=== PATIENT | male | born 1975 | race Caucasian/White ===

== ENCOUNTER 2017-10-28 09:16 | Inpatient (IN) | payer MEDICAID, OTHER ==
[~2017-10-28] VITALS: Ht 167.6 cm; Wt 60.7 kg
[~2017-10-28 09:16] MED LIST: DOCU100C40 PO; IBUP-1986 PO; LACT1CAP26 PO; NICO-687 TD; TAMS0.4C32 PO; TERA2CAP4 PO
[2017-10-28] MEDS ORDERED: penicillin G potassium inj 2,000,000 UNIT in normal saline 100ml IV soln 100 ML IV ONE (09:30)
[2017-10-28] MEDS ORDERED: normal saline 1000ML IV soln IV ONE (09:30)
[2017-10-28 10:03] LABS: BASOPHILS % (AUTO) 0.4 % (0-1); EOSINOPHILS # (AUTO) 0.1 X10'3 (0-0.9); EOSINOPHILS % (AUTO) 1.7 % (0-6); HEMATOCRIT 37.7 % (42.0-52.0); HEMOGLOBIN 12.7 g/dl (14.0-17.9); LYMPHOCYTES # (AUTO) 1.3 X10'3 (1.1-4.8); LYMPHOCYTES % (AUTO) 14.4 % (21-51); MEAN CORPUSCULAR HEMOGLOBIN 30.2 PG (27.0-31.0); MEAN CORPUSCULAR HGB CONC 33.7 % (33.0-36.5); MEAN CORPUSCULAR VOLUME 89.6 FL (78-98); MEAN PLATELET VOLUME 7.2 FL (7.4-10.4); MONOCYTES # (AUTO) 0.4 X10'3 (0-0.9); MONOCYTES % (AUTO) 5.1 % (2-12); NEUTROPHILS # (AUTO) 6.9 X10'3 (1.8-7.7); NEUTROPHILS % (AUTO) 78.4 % (42-75); PLATELET COUNT 523 X10'3 (140-440); RED BLOOD COUNT 4.21 X10'6 (4.70-6.10); RED CELL DISTRIBUTION WIDTH 13.8 % (11.5-14.5); WHITE BLOOD COUNT 8.8 X10'3 (4.5-11.0)
[2017-10-28 10:13] LABS: PARTIAL THROMBOPLASTIN TIME 27 SECONDS (22-32); PROTHROMBIN TIME 10.1 SECONDS (9.0-12.0)
[2017-10-28 10:18] LABS: ALANINE AMINOTRANSFERASE 107 U/L (12-78); ALBUMIN 2.6 G/DL (3.4-5.0); ALBUMIN/GLOBULIN RATIO 0.4 (1.1-1.5); ALKALINE PHOSPHATASE 101 IU/L (46-116); ANION GAP 4 (8-16); ASPARTATE AMINO TRANSFERASE 69 U/L (10-37); BILIRUBIN,TOTAL 0.3 MG/DL (0.1-1.0); BLOOD UREA NITROGEN 6 MG/DL (7-18); BUN/CREATININE RATIO 7.8 (5.4-32.0); CALCIUM 8.6 MG/DL (8.5-10.1); CHLORIDE 105 MMOL/L (99-107); CREATININE 0.77 MG/DL (0.60-1.10); GLUCOSE 112 MG/DL (70-104); MAGNESIUM 1.8 MG/DL (1.5-2.4); POTASSIUM 3.6 MMOL/L (3.5-5.1); SODIUM 139 MMOL/L (135-145); TOTAL PROTEIN 8.4 G/DL (6.4-8.2); eGFR > 90 ML/MIN
[2017-10-28 10:25] LABS: CLARITY,URINE CLEAR (Clear); COLOR,URINE YELLOW (Yellow); GLUCOSE, URINE NEGATIVE (Neg); KETONES,URINE NEGATIVE (Neg); LEUKOCYTE ESTERASE ,URINE NEGATIVE (Neg); NITRITES, URINE NEGATIVE (Neg); OCCULT BLOOD,URINE TRACE-INTACT (Neg); PROTEIN,URINE NEGATIVE (Neg); UROBILINOGEN,URINE 0.2 E.U/dL (0.2-1.0)
[2017-10-28 10:28] LABS: UA COLLECTION TYPE CLN CATCH MIDSTREAM
[2017-10-28 10:43] LABS: BACTERIA,URINE FEW /HPF (Neg); MUCUS STRANDS FEW /LPF (Neg); SQUAMOUS EPITHELIAL CELL,UR FEW /LPF (FEW); WBC,URINE 0-4 /HPF (0-4)
[2017-10-28] MEDS ORDERED: acetaminophen 325mg tablet PO PRN ×2 (11:35)
[2017-10-28] MEDS ORDERED: magnesium hydroxide 30ml (MOM) UD suspension PO PRN (11:35)
[2017-10-28] MEDS ORDERED: mag hydrox/Alum hydrox/simeth 30ml oral suspension PO PRN (11:35)
[2017-10-28 12:26] LABS: TROPONIN I < 0.04 NG/ML (0.0-0.05)
[2017-10-28] MEDS ORDERED: ibuprofen tablet 400 MG TABLET PO PRN (12:30)
[2017-10-28] MEDS: HYDROcodone/acetaminophen 5mg/325mg tablet PO PRN ×2 (12:41→21:56)
[2017-10-28 14:00] VITALS: BP 131/81
[2017-10-28] MEDS: nicotine 14mg patch - 24hr TD SCH (19:35)
[2017-10-28 20:00] VITALS: BP_SYST 123; BP_SYST 128; BP_SYST 138; BP_DIAS 78; BP_DIAS 79; BP_DIAS 82
[2017-10-28] MEDS ORDERED: temazepam 15mg capsule PO PRN (21:00)
[2017-10-28] MEDS: penicillin G potassium inj 2,000,000 UNIT in normal saline 100ml IV soln 100 ML IV SCH (21:52)
[2017-10-29] VITALS: BP 127/73
[2017-10-29] MEDS: penicillin G potassium inj 2,000,000 UNIT in normal saline 100ml IV soln 100 ML IV SCH ×4 (02:40→19:54)
[2017-10-29] MEDS: HYDROcodone/acetaminophen 10/325mg tab PO PRN ×4 (04:00→17:18)
[2017-10-29 05:08] LABS: BASOPHILS # (AUTO) 0.1 X10'3 (0-0.2); BASOPHILS % (AUTO) 0.9 % (0-1); EOSINOPHILS # (AUTO) 0.2 X10'3 (0-0.9); EOSINOPHILS % (AUTO) 1.8 % (0-6); HEMATOCRIT 38.1 % (42.0-52.0); HEMOGLOBIN 12.7 g/dl (14.0-17.9); LYMPHOCYTES # (AUTO) 2.1 X10'3 (1.1-4.8); LYMPHOCYTES % (AUTO) 23.5 % (21-51); MEAN CORPUSCULAR HGB CONC 33.4 % (33.0-36.5); MEAN CORPUSCULAR VOLUME 89.8 FL (78-98); MEAN PLATELET VOLUME 7.5 FL (7.4-10.4); MONOCYTES # (AUTO) 0.5 X10'3 (0-0.9); MONOCYTES % (AUTO) 5.8 % (2-12); NEUTROPHILS # (AUTO) 6.2 X10'3 (1.8-7.7); PLATELET COUNT 505 X10'3 (140-440); RED BLOOD COUNT 4.24 X10'6 (4.70-6.10); RED CELL DISTRIBUTION WIDTH 13.8 % (11.5-14.5); WHITE BLOOD COUNT 9.1 X10'3 (4.5-11.0)
[2017-10-29] MEDS: LORazepam 0.5 MG tablet PO PRN (05:24)
[2017-10-29 05:46] LABS: ALBUMIN 2.5 G/DL (3.4-5.0); ANION GAP 8 (8-16); BLOOD UREA NITROGEN 13 MG/DL (7-18); BUN/CREATININE RATIO 16.3 (5.4-32.0); CALCIUM 8.9 MG/DL (8.5-10.1); CHLORIDE 105 MMOL/L (99-107); GLUCOSE 92 MG/DL (70-104); MAGNESIUM 1.8 MG/DL (1.5-2.4); POTASSIUM 4.1 MMOL/L (3.5-5.1); SODIUM 141 MMOL/L (135-145); TOTAL CARBON DIOXIDE 27.7 MMOL/L (24-32); eGFR > 90 ML/MIN
[2017-10-29 07:35] VITALS: BP 118/74
[2017-10-29 08:00] VITALS: BP_SYST 118; BP_SYST 119; BP_SYST 133; BP_DIAS 74; BP_DIAS 80; BP_DIAS 83
[2017-10-29] MEDS: tamsulosin 0.4mg capsule PO SCH (08:19)
[2017-10-29] MEDS: nicotine 14mg patch - 24hr TD SCH (08:19)
[2017-10-29 11:00] VITALS: BP 135/80
[2017-10-29] MEDS: ondansetron/PF 4mg/2ml inj IV PRN (13:21)
[2017-10-29] MEDS: lactobacillus rhamnosus 10,000 MMU CELLS/CAPSULE PO SCH (17:19)
[2017-10-29 22:00] VITALS: BP 115/69
[2017-10-30] MEDS: HYDROcodone/acetaminophen 10/325mg tab PO PRN ×2 (01:22→05:47)
[2017-10-30] MEDS: penicillin G potassium inj 2,000,000 UNIT in normal saline 100ml IV soln 100 ML IV SCH ×3 (01:23→14:42)
[2017-10-30 05:50] LABS: BASOPHILS % (AUTO) 0.6 % (0-1); EOSINOPHILS # (AUTO) 0.1 X10'3 (0-0.9); EOSINOPHILS % (AUTO) 1.4 % (0-6); HEMATOCRIT 40.5 % (42.0-52.0); HEMOGLOBIN 13.5 g/dl (14.0-17.9); LYMPHOCYTES % (AUTO) 24.7 % (21-51); MEAN CORPUSCULAR HEMOGLOBIN 29.9 PG (27.0-31.0); MEAN CORPUSCULAR HGB CONC 33.2 % (33.0-36.5); MEAN PLATELET VOLUME 7.2 FL (7.4-10.4); MONOCYTES # (AUTO) 0.6 X10'3 (0-0.9); MONOCYTES % (AUTO) 7.1 % (2-12); NEUTROPHILS # (AUTO) 5.3 X10'3 (1.8-7.7); NEUTROPHILS % (AUTO) 66.2 % (42-75); PLATELET COUNT 560 X10'3 (140-440); WHITE BLOOD COUNT 8.1 X10'3 (4.5-11.0)
[2017-10-30 05:52] LABS: PROTHROMBIN TIME 10.1 SECONDS (9.0-12.0)
[2017-10-30 05:56] LABS: ALBUMIN 2.7 G/DL (3.4-5.0); ANION GAP 7 (8-16); BLOOD UREA NITROGEN 10 MG/DL (7-18); BUN/CREATININE RATIO 11.4 (5.4-32.0); CALCIUM 9.4 MG/DL (8.5-10.1); CHLORIDE 103 MMOL/L (99-107); CREATININE 0.88 MG/DL (0.60-1.10); GLUCOSE 104 MG/DL (70-104); POTASSIUM 3.8 MMOL/L (3.5-5.1); SODIUM 140 MMOL/L (135-145); TOTAL CARBON DIOXIDE 29.8 MMOL/L (24-32); eGFR > 90 ML/MIN
[2017-10-30 06:00] VITALS: BP 114/63
[2017-10-30] MEDS: ondansetron/PF 4mg/2ml inj IV PRN (06:31)
[2017-10-30] MEDS: lactobacillus rhamnosus 10,000 MMU CELLS/CAPSULE PO SCH (07:56)
[2017-10-30] MEDS: tamsulosin 0.4mg capsule PO SCH (07:56)
[2017-10-30] MEDS: nicotine 14mg patch - 24hr TD SCH (07:57)
[2017-10-30 08:00] VITALS: BP_SYST 108; BP_SYST 115; BP_SYST 98; BP_DIAS 71; BP_DIAS 74; BP_DIAS 78
[2017-10-30] MEDS ORDERED: LORazepam 2 mg/ml vial IV ONE (08:00)
[2017-10-30 10:00] VITALS: BP 110/75
[2017-10-30] MEDS: LORazepam 0.5 MG tablet PO PRN (11:37)
[2017-10-30] MEDS ORDERED: AMO250L PO (16:31)
== END 2017-10-30 17:12 | disposition home or self-care (01) | DRG 57 ==
LOC: ER 09:17 → ED HOLD 11:31 → SUR 3N 14:14 → ORTHO 4S 10-29 17:27
PROVIDERS: ADMIT Emergency Medicine; ATTEND Emergency Medicine
DX: S02.119A Unspecified fracture of occiput, initial encounter for closed fracture (principal); F07.81 Postconcussional syndrome; S06.1X9A Traumatic cerebral edema with loss of consciousness of unspecified duration, initial encounter; S06.9X0A Unspecified intracranial injury without loss of consciousness, initial encounter; R26.89 Other abnormalities of gait and mobility; H91.8X1 Other specified hearing loss, right ear; F17.210 Nicotine dependence, cigarettes, uncomplicated; F15.90 Other stimulant use, unspecified, uncomplicated; Z79.899 Other long term (current) drug therapy; Z88.8 Allergy status to other drugs, medicaments and biological substances; Z86.14 Personal history of Methicillin resistant Staphylococcus aureus infection; Z81.8 Family history of other mental and behavioral disorders; Y08.89XA Assault by other specified means, initial encounter; Y93.89 Activity, other specified; Y92.89 Other specified places as the place of occurrence of the external cause; Y99.8 Other external cause status; Z91.81 History of falling
CPT/HCPCS: 36415; 70450; 70486; 70544; 70551; 71010; 80048; 80053; 81001; 83605; 83735; 84145; 84484; 85025; 85610; 85730; 87040; 87070; 93005; 96365; 99285; J2405; J2540; J7030

== ENCOUNTER 2020-09-17 22:14 | Emergency (ER) | payer MEDICAID, OTHER ==
[~2020-09-17] VITALS: Ht 167.6 cm; Wt 84.1 kg
[2020-09-17 22:21] VITALS: BP 111/67
[2020-09-17] MEDS ORDERED: ketorolac tromethamine 15mg/ml inj. IM ONE (22:40)
[2020-09-17] MEDS ORDERED: IBUP-1984 PO (22:48)
== END 2020-09-17 23:06 | disposition home or self-care (01) ==
LOC: ER 22:15
DX: M79.644 Pain in right finger(s) (principal); F17.200 Nicotine dependence, unspecified, uncomplicated; F15.90 Other stimulant use, unspecified, uncomplicated; Z86.14 Personal history of Methicillin resistant Staphylococcus aureus infection; Z72.89 Other problems related to lifestyle; Z88.8 Allergy status to other drugs, medicaments and biological substances; Z79.899 Other long term (current) drug therapy
CPT/HCPCS: 73140; 96372; 99283; J1885; 29130

== ENCOUNTER 2022-02-11 14:59 | Emergency (ER) | payer MEDICAID, OTHER ==
[~2022-02-11] VITALS: Ht 167.6 cm; Wt 88.2 kg
[2022-02-11 15:18] VITALS: BP 145/87
--- NOTE | 2022-02-11 16:50 | NUR ---
PT TO CT
[2022-02-11] MEDS ORDERED: LIDOcaine 1% W/epiNEPHrine 1:200,000 10ml vial IJ ONE (17:45)
[2022-02-11] MEDS ORDERED: LIDOCAINE 2% w/EPI 1:100:000 30mL injection MDV**cath lab 1 only SQ ONE (17:45)
--- NOTE | 2022-02-11 18:44 | NUR ---
PT REFUSING PROCEDURE. PT REQUESTING TO LEAVE. TRIPLE ANTIBOTIC OINTMENT AND BANDAID APPLIED. PT DID NOT WAIT FOR DISCHARGE INSTRUCTIONS. DR. FRAGOSO MADE AWARE THAT PT WAS NOT GOING TO WAIT. PT ENCOURAGED TO RETURN TO THE ER IN 3 DAYS FOR FURTHER EVALUATION AND TREATMENT.
== END 2022-02-11 18:49 | disposition home or self-care (01) ==
LOC: ER 15:01
DX: S01.01XA Laceration without foreign body of scalp, initial encounter (principal); F17.200 Nicotine dependence, unspecified, uncomplicated; F15.90 Other stimulant use, unspecified, uncomplicated; Z72.89 Other problems related to lifestyle; Z86.14 Personal history of Methicillin resistant Staphylococcus aureus infection; Z98.890 Other specified postprocedural states; Z88.8 Allergy status to other drugs, medicaments and biological substances; Y08.89XA Assault by other specified means, initial encounter; Y93.89 Activity, other specified; Y92.89 Other specified places as the place of occurrence of the external cause; Y99.8 Other external cause status
CPT/HCPCS: 70450; 99284

== ENCOUNTER 2023-07-08 17:44 | Emergency (ER) | payer MEDICAID ==
[~2023-07-08] VITALS: Ht 167.6 cm; Wt 93.2 kg
[2023-07-08 19:12] VITALS: BP 137/100; PULSE 98; TEMP 98.2; O2SAT 97
[2023-07-08] MEDS ORDERED: BUPIVAcaine 0.5% W/EPI /PF 10ml vial IJ STA (20:39)
[2023-07-08] MEDS ORDERED: LIDOcaine 1% W/epiNEPHrine 1:100,000 20ml vial SQ ONE (20:40)
[2023-07-08] MEDS ORDERED: morphine 2 MG/ML inj. syringe IM ONE ×2 (20:40→21:20)
[2023-07-08] MEDS ORDERED: ondansetron 4mg rapidly disintigrating tab PO ONE (20:40)
[2023-07-08] MEDS ORDERED: OXYC-150 PO (21:23)
[2023-07-08 21:28] VITALS: RESP 16
== END 2023-07-08 21:53 | disposition home or self-care (01) ==
LOC: ER 17:45
DX: S52.91XA Unspecified fracture of right forearm, initial encounter for closed fracture (principal); S52.201A Unspecified fracture of shaft of right ulna, initial encounter for closed fracture; W11.XXXA Fall on and from ladder, initial encounter; Y93.89 Activity, other specified; Y92.89 Other specified places as the place of occurrence of the external cause; Y99.8 Other external cause status
CPT/HCPCS: 25605; 73090; 73100; 96372; 99284; J2270

== ENCOUNTER 2023-08-11 07:34 | Day surgery (SDC) | payer MEDICAID ==
[2023-08-08 09:40] LABS: BASOPHILS # (AUTO) 0.1 X10'3 (0-0.2); BASOPHILS % (AUTO) 1.3 % (0-1); EOSINOPHILS # (AUTO) 0.1 X10'3 (0-0.9); EOSINOPHILS % (AUTO) 2.5 % (0-6); LYMPHOCYTES # (AUTO) 1.3 X10'3 (1.1-4.8); LYMPHOCYTES % (AUTO) 24.1 % (21-51); MEAN CORPUSCULAR HEMOGLOBIN 29.7 PG (27.0-31.0); MEAN CORPUSCULAR HGB CONC 33.8 g/dL (33.0-36.5); MEAN PLATELET VOLUME 7.6 FL (7.4-10.4); MONOCYTES # (AUTO) 0.6 X10'3 (0-0.9); MONOCYTES % (AUTO) 11.9 % (2-12); NEUTROPHILS # (AUTO) 3.3 X10'3 (1.8-7.7); NEUTROPHILS % (AUTO) 60.2 % (42-75); PRE OP HEMOGLOBIN 13.2 g/dL (14.0-17.9); PRE OP PLATELET COUNT 214 X10'3 (140-440); PRE OP WHITE BLOOD COUNT 5.4 10'3 (4.8-10.8); RED BLOOD COUNT 4.44 X10'6 (4.70-6.10); RED CELL DISTRIBUTION WIDTH 14.1 % (11.5-14.5)
[2023-08-08 09:47] LABS: CHLORIDE 106 MMOL/L (99-107); PRE OP ANION GAP 8 (8-16); PRE OP POTASSIUM 4.1 MMOL/L (3.4-5.1); PRE OP SODIUM 138 MMOL/L (135-145); TOTAL CARBON DIOXIDE 24.5 MMOL/L (24-32)
[2023-08-08 09:50] LABS: ALBUMIN 3.3 G/DL (3.4-5.0); ALBUMIN/GLOBULIN RATIO 0.8 (1.1-1.5); ALKALINE PHOSPHATASE 109 IU/L (46-116); BLOOD UREA NITROGEN 21 MG/DL (7-18); BUN/CREATININE RATIO 18.9 (10.0-20.0); CALCIUM 8.7 MG/DL (8.5-10.1); CREATININE 1.11 MG/DL (0.60-1.10); PRE OP ALT 34 U/L (30-65); PRE OP AST 27 U/L (10-37); PRE OP BILIRUB, TOTAL 0.3 MG/DL (0.0-1.0); PRE OP GLUCOSE 106 MG/DL (70-104); TOTAL PROTEIN 7.3 G/DL (6.4-8.2); eGFR 70 ML/MIN
[2023-08-11] VITALS (21 sets, daily range): BP systolic 94–138; BP diastolic 57–91; PULSE 73–90; RESP 10–16; TEMP 97.8; O2SAT 91–100
[~2023-08-11] VITALS: Ht 167.6 cm; Wt 93.7 kg
[~2023-08-11 07:34] MED LIST changes: -DOCU100C40 PO; +FLO0.4C PO; -IBUP-1986 PO; -LACT1CAP26 PO; -NICO-687 TD; -TAMS0.4C32 PO; -TERA2CAP4 PO; +cefazolin 2gm/D5W 100mL 100 ML IV ONE; +famotidine 20mg tablet PO ONE; +ringers solution, lacted 1,000 ML IV SCH
[2023-08-11] MEDS ORDERED: ondansetron/PF 4mg/2ml inj IV PRN (07:55)
[2023-08-11] MEDS ORDERED: fentaNYL/PF 50MCG/1 ML 2ML syringe IV PRN ×2 (07:55)
[2023-08-11] MEDS ORDERED: morphine 4 MG/ML inj SYRINge IV PRN (07:55)
[2023-08-11] MEDS ORDERED: morphine 2 MG/ML inj. syringe IV PRN (07:55)
[2023-08-11] MEDS ORDERED: ringers solution, lacted 1,000 ML IV SCH (07:55)
[2023-08-11] MEDS ORDERED: labetalol 20mg/4ml (5mg/ml) syringe IV PRN (07:55)
[2023-08-11] MEDS ORDERED: desflurane 240ml liquid inh. IH ONE (10:04)
[2023-08-11] MEDS ORDERED: LIDOcaine 2% (20mg/ml) 5ml vial ONE (10:04)
[2023-08-11] MEDS ORDERED: dexamethasone sod phosphate 4mg/ml inj. ONE (10:23)
[2023-08-11] MEDS ORDERED: propofol inj 20 ML IV ONE (10:23)
[2023-08-11] MEDS ORDERED: ondansetron/PF 4mg/2ml inj ONE ×2 (10:23→10:31)
[2023-08-11] MEDS ORDERED: acetaminophen 1,000mg/100ml IV 100 ML IV ONE (10:30)
[2023-08-11] MEDS ORDERED: fentaNYL/PF 50MCG/1 ML 2ML syringe ONE (11:12)
--- NOTE | 2023-08-11 11:27 | NUR ---
Received from OR via [facility], accompanied by Anesthesiologist FILIBERTO and report given by Anesthesiologist. PT PRESENTS ON 10L VIA MASK, VSS, TEMP 35.9 CELSIUS: ADDED A WARM BLANKET AND HEAT. WILL RECHECK TEMP PER PROTOCOL. PT IS AROUSABLE TO VOICE BUT SLEEPY. RIGHT ARM ELEVATED AND ICE APPLIED. LR RUNNING THRU PIV. NO C/O PAIN OR NAUSEA AT THIS TIME
--- NOTE | 2023-08-11 14:37 | NUR ---
PT STABLE FOR D/C PER MD ORDERS. ALL D/C PPWK REV'D WITH PATIENT - ALL QUESTIONS, COMMENTS, AND CONCERNS WERE ANSWERED. EDUCATION PROVIDED ON QUITTING RECREATIONAL DRUGS: PT VERBALIZED UNDERSTANDING. PT WAS ABLE TO GET DRESSED WITH ASSISTANCE. PT WAS ABLE TO TRANSFER HIMSELF TO W/C AND THEN TO TOILET. NO S/S BLEEDING AND NO C/O PAIN OR NAUSEA FOR RIGHT ARM SPLINT WHICH REMAINS CDI. PATIENT WAS WHEELED OUT TO PRIVATE VEHICLE WITH ALL PERSONAL BELONGINGS. REV'D D/C PPWK WITH PANDA POWELL WELL AND ALL QUESTIONS, COMMENTS, AND CONCERNS WERE ANSWERED. PATIENT TRANSFERRED INTO VEHICLE WITHOUT INCIDENT.
== END 2023-08-11 14:37 | disposition home or self-care (01) ==
LOC: PAS 07:34
PROVIDERS: ATTEND Orthopaedic Surgery Hand Surgery
DX: S52.551A Other extraarticular fracture of lower end of right radius, initial encounter for closed fracture (principal); N40.0 Benign prostatic hyperplasia without lower urinary tract symptoms; F17.210 Nicotine dependence, cigarettes, uncomplicated; Z79.1 Long term (current) use of non-steroidal anti-inflammatories (NSAID); Z79.899 Other long term (current) drug therapy; Z98.890 Other specified postprocedural states; Z88.8 Allergy status to other drugs, medicaments and biological substances; W11.XXXA Fall on and from ladder, initial encounter; Y93.89 Activity, other specified; Y92.89 Other specified places as the place of occurrence of the external cause; Y99.8 Other external cause status
CPT/HCPCS: 25607; 36415; 64417; 80053; 82948; 85025; 93005; A6222; C1713; J0131; J0690; J1100; J2405; J2704; J3010; J3490; J7030; J7120; Z7506; Z7508; Z7512; A4215; A4618; A6449; A7000